=== PATIENT | male | born 1945 | race Caucasian/White ===

== ENCOUNTER 2019-05-20 12:59 | Inpatient (IN) | payer MEDICARE ==
[~2019-05-20] VITALS: Ht 177.8 cm; Wt 81.6 kg
--- NOTE | ~2019-05-20 | PR ---
[place], [place] [facility]GRESS NOTE [id number] #: [id number] ROOM: 315 DOCTOR: AMY MEDINA MD BIRTHDATE: [birth year] DOS: 05/26/2019 CHIEF COMPLAINT: The patient was perseverative and repeated everything I said. SUMMARY OF THE VISIT: The patient was interviewed. As I entered the room, he was sitting in a Stephy chair. He exhibited both echolalia and perseveration. He repeated what I said and also had a tendency to repeat himself over and over again. He was not agitated, just grossly confused. Nurses report similar behavior throughout the day that his confusion is progressively worsening. MENTAL STATUS: He is alert and oriented to self, unclear place, certainly not time. Mood for the most part is euthymic. Responses are short, simple and inappropriate for the most part. PLAN: I will recheck a comprehensive metabolic panel as well as an amylase and lipase, check a valproic acid level in the a.m. and increase Exelon patch from 4.6 to 9.5 mg a day. Continue to engage in individual and lloyd milieu activity, returning to the least restrictive environment when psychiatrically stable. AMY MEDINA MD CM:PNTRANS [id number] AMY MEDINA MD 05/27/19 0244 interface
--- NOTE | ~2019-05-20 | PR ---
[place], [place] PROGRESS NOTE [id number] UNIT #: [id number] ROOM: 315 DOCTOR: AMY MEDINA MD BIRTHDATE: [birth year] DOS: 05/22/2019 CHIEF COMPLAINT: "Good morning." SUMMARY OF THE VISIT: The patient was interviewed as he was sitting in the dining area. He engaged in brief superficial conversation. Most of his responses were short and simple. He was, however, not agitated or aggressive towards me. He does seem to be outwardly tolerating the medication regimen well. His guardian did agree to allow him to be on the Exelon. She did report that when he was on the combination of Exelon and Namenda, he had a period of time where he became nonresponsive. My sense is that this was secondary to the Namenda and not to the Exelon. We will, however, start the Exelon and titrate very slowly and cautiously and monitor him closely. MENTAL STATUS: He is alert and oriented to self only. Mood for the most part was euthymic. Affect appropriate. There is no markel, hypomania or psychosis. He does process conversation exceedingly slow and short term memory is very poor. PLAN: His valproic acid level was therapeutic at 70.2. We will maintain his current psychotropic regimen, engage in individual and lloyd milieu activity, returning then to the least restrictive environment when psychiatrically stable. AMY MEDINA MD CM:PNTRANS 1313 AMY MEDINA MD 05/22/19 1311 interface
--- NOTE | ~2019-05-20 | PR ---
[place], [place] PROGRESS NOTE [facility] [id number] UNIT #: [id number] ROOM: 315 DOCTOR: AMY MEDINA MD BIRTHDATE: [birth year] DOS: 05/30/2019 CHIEF COMPLAINT: "I guess the food is good." SUMMARY OF THE VISIT: The patient was interviewed as he was eating his breakfast with the help of an aide. I asked if he liked his breakfast and he looked at me perplexed and said "I guess so." I asked him if he was thirsty and he nodded in approval and requested something to drink and he had a sip of milk. For the most part, his speech was goal oriented. Short and simple responses for the most part, but nothing bizarre like he had been previously. MENTAL STATUS: He is alert and oriented to self only. He remains grossly confused and disorganized. PLAN: His CT scan of the head yesterday came back showing small vessel disease changes. His CMP results seem to be showing some issues, but nothing truly significant, but I will plan on rechecking a CMP and a sed rate in the a.m. At this point in time, I will avoid the use of Namenda and Exelon and also try to avoid the use of any psychotropics until we see how this mental status of his clears. We will attempt to engage in individual and lloyd milieu activity. We will attempt aggressive PT and OT. We will return to the least restrictive environment when psychiatrically stable. AMY MEDINA MD CM:PNTRANS 3 [phone] AMY MEDINA MD 05/30/191924 interface
--- NOTE | ~2019-05-20 | PR ---
[place], [place] PROGRESS NOTE NAME: [id number] UNIT #: [id number] ROOM: 315 DOCTOR: BINDU FOSTER CNP BIRTHDATE: [birth year] DOS: 06/01/2019 CHIEF COMPLAINT: "This will be about the last one." SUMMARY OF THE VISIT: The patient was interviewed as he lie in his bed. The patient has eyes closed whenever I entered his room; however, he aroused easily whenever I called his name. The patient appears definitely more alert today. Staff reports that the patient has been praying for everyone and singing. The patient did sleep 4 hours last night. The patient definitely has shown some improvement since yesterday. MENTAL STATUS EXAMINATION: The patient is alert to self. He was pleasant and cooperative with me. No markel or hypomania noted. No delusions or paranoia noted. No psychotic symptoms noted. No auditory or visual hallucinations noted. The patient's mood was calm. Affect congruent with mood. No agitation, irritability or aggression noted. Speech is somewhat nonsensical. PLAN: The patient is not on any psychotropics, so we will continue the patient's other medications as prescribed. His H and H was 7 and 21 this morning. A hospitalist will follow him for this. We will continue to try to encourage the patient to engage in individual and lolyd milieu activity. Continue fall and safety precautions. Plan is to return the patient to the least restrictive environment once he is considered psychiatrically stable. Bindu Foster CNP CM:PNTRANS [phone] BINDU FOSTER CNP 06/02/19 0314 interface
--- NOTE | ~2019-05-20 | PR ---
[place], [place] PROGRESS NOTE [id number] UNIT #: [id number] ROOM: 315 DOCTOR: BINDU FOSTER CNP BIRTHDATE: [birth year] DOS: 05/31/2019 CHIEF COMPLAINT: The patient was overly somnolent. SUMMARY OF THE VISIT: The patient was attempted to be interviewed as he sat in a reclining chair in the dining room. The patient did open his eyes whenever I called his name; however, he does not verbalize with me this morning. Staff reports that the patient does continue to have some anxiety and to yell out at times; however, he also has periods of being lethargic and somnolent. The patient is currently not on any psychotropic medications. MENTAL STATUS EXAMINATION: The patient is alert and oriented to himself. There is no markel or hypomania noted. No delusion or paranoia noted. No psychotic symptoms noted. No auditory or visual hallucinations noted. The patient's mood was calm this morning. Affect congruent with mood. No agitation, irritability or aggressiveness noted. PLAN: The patient had an ESR, which was elevated to 70. His BUN and creatinine are elevated. His GFR is low. We will have the plan to have the hospitalist follow up with these labs. We will not change any medications today. I will continue to monitor the patient and continue to encourage the patient to engage in individual and lloyd milieu activity. Continue fall and safety precautions. Plan is to return the patient to the least restrictive environment once he is considered psychiatrically stable. Bindu Foster CNP CM:PNTRANS [id number] BINDU FOSETR CNP 05/31/19 1224 interface
--- NOTE | ~2019-05-20 | DS ---
[place], [place] DISCHARGE SUMMARY [facility] [id number] UNIT #: [id number] ROOM: 315 DOCTOR: AMY MEDINA MD BIRTHDATE: [birth year] DOS: 06/03/2019 CHIEF COMPLAINT: "I didn't do it, he would be good." HISTORY OF PRESENT ILLNESS: This is a 74-year-old white male who is a resident of [facility] in [place], [place]. The patient presents with increased agitation and aggression. The patient has been attempting to elope the facility and when redirected, has become increasingly more combative with staff. Because he has not been able to be redirected and he is putting both himself and others at substantial risk of harm, he was admitted to the U to rule out organic factors to stabilize on medication and to engage in individual and lloyd milieu activity. SUMMARY OF HOSPITAL COURSE: The patient was admitted to the unit where his Depakote level was increased and he was started on Exelon patch. The patient's guardian did state that the patient had a reaction to either Exelon or Namenda as he was on both of these at one time. We agreed to at least try the Exelon and go slowly with it. Additionally, routine screening examinations revealed him to have a low vitamin D level of 21.7 on admission and he was started on vitamin D 5000 International Units daily. Depakote dose was increased during his stay, but to no avail. It just only seemed to cause him sedation, but did not impact positively on his behavior. He became somewhat somnolent with the Depakote, so it was later discontinued and he was maintained on the Exelon alone. The patient continued to be somnolent even on just the Exelon and the guardian requested that he be kept psychotropic free. All psychotropic meds were discontinued at that time and he was then monitored over the next 72 hours. Over this period of time, he became much more alert, but very, very confused, which was his baseline. There was no acting out or agitation and for the most part he responded to redirection well. Given the fact that he was stable without medications, it was felt that he can return back to the Dementia Unit at [facility] to have further treatment there. I will be the treating psychiatrist of record when he is readmitted to [facility]. MENTAL STATUS AT DISCHARGE: He is alert and oriented to self only. He is very confused and disoriented. Thoughts are disjointed, fragmented, and he responds nonsensically the most things. There was no agitation or aggression. No hypomania, markel. No psychosis. Short term, intermediate memory are both poor. FINAL DIAGNOSES: Intermittent explosive disorder, Lewy body dementia. DISPOSITION: The patient is returning back to [facility]. I will be the treating psychiatrist of record. At the time of discharge, he was both medically and psychiatrically stable. [place], [place] DISCHARGE SUMMARY NAME: SUDHA ALLEN UNIT #: [id number] ROOM: [facility] DOCTOR: AMY MEDINA MD BIRTHDATE: [birth year] AMY MEDINA MD CM:DISCHJIMMY [id number] AMY MEDINA MD 06/03/19 1601 interface
--- NOTE | ~2019-05-20 | PR ---
[place], [place] PROGRESS NOTE [id number] #: [id number] ROOM: 315 DOCTOR: AMY MEDINA MD BIRTHDATE: [birth year] DOS: 05/29/2019 CHIEF COMPLAINT: The patient talked nonsense. SUMMARY OF THE VISIT: The patient was attempted to be interviewed as he was sitting in the dining area. As I approached, he was awake. He made eye contact, but his responses were nonsensical and gibberish. Nurses report, he continues to have periods where he will talk on an imaginary phone and does report having tactile and visual hallucinations. MENTAL STATUS: He is alert and oriented to self only. He is confused and disoriented and disjointed and fragmented, grossly psychotic. PLAN: Given the plethora of tactile and visual hallucinations, I will go ahead and order a CAT scan with and without contrast to rule out the possibility of some type of intracranial pathology. We will monitor and support, engage in individual and lloyd milieu activity, returning to the least restrictive environment when psychiatrically stable. AMY MEDINA MD CM:PNTRANS [id number] AMY MEDINA MD 05/29/19 1521 interface
--- NOTE | ~2019-05-20 | PN ---
[place], [place] PROGRESS NOTE NAME: SUDHA ALLEN UNIT #: [id number] ROOM: 315 DOCTOR: AMY MEDINA MD BIRTHDATE: [birth year] DATE: 06/02/19 DR. MEDINA ADDENDUM 06/30/19 1200: Resident note reviewed. Agree with observations, recommendations, and overall treatment plan. AMY MEDINA MD CM:PNTRANS [phone] AMY MEDINA MD 06/30/19 1223 AMANDA ACHARYA MIS.LLR
--- NOTE | ~2019-05-20 | WRIGHTHP ---
[place], [place] PATIENT HISTORY AND PHYSICAL EXAM NAME: SUDHA ALLEN UNIT #: [id number] ROOM: 315 DOCTOR: AMY MEDINA MD BIRTHDATE: [birth year] DOS: 05/21/2019 INITIAL PSYCHIATRIC EVALUATION CHIEF COMPLAINT: "I didn't do it, he would be good." HISTORY OF PRESENT ILLNESS: This is a 74-year-old white male who is a resident of [facility] in [place], [place]. The patient presents now with increased agitation and aggression. The patient had been attempting to elope the facility and when redirected, had become increasingly more combative with staff. Because he has been unable to be redirected and has been putting himself and others at substantial risk for harm, he was admitted here for stabilization and crisis intervention. PAST MEDICAL HISTORY: Remarkable for Alzheimer's dementia, benign prostatic hyperplasia, coronary artery disease, congenital renal cyst, diabetes, diabetic retinopathy, hyperlipidemia, hypertension. SOCIAL HISTORY: He does not drink alcohol, use illicit drugs and he is a nonsmoker. ALLERGIES: He lists allergies to MORPHINE. STRENGTHS: Ambulatory. Good verbal skills. WEAKNESSES: Significant confusion, poor coping skills. MENTAL STATUS: The patient is alert and oriented to self only. Most of his responses to me this morning were nonsensical. At times, he would briefly make sense, but then would trail off into gibberish. He was pleasant and cooperative however and did not exhibit any agitation or aggression towards me. Memory does seem to be excessively poor. DIAGNOSES: Intermittent explosive disorder and Alzheimer's dementia. PLAN: I have increased his Depakote dose to try to stabilize his mood. I would like to start him on Exelon patch, but the guardian is not on board with this. We will attempt to educate the guardian regarding the benefits of the Exelon. Meanwhile, his vitamin D level upon admission was low at 21.7. I will add vitamin D 5000 International Units daily to treat this deficiency. We will engage in individual and lloyd milieu activity, returning to the least restrictive environment when psychiatrically stable. [place], [place] PATIENT HISTORY AND PHYSICAL EXAM NAME: SUDHA ALLEN UNIT #: [id number] ROOM: 315 DOCTOR: AMY MEDINA MD BIRTHDATE: [birth year] AMY MEDINA MD CM:HISPHYS:PATIENT HISTORY AND PHYSICAL EXAMINATION AMY MEDINA MD 05/21/19 0949 interface
--- NOTE | ~2019-05-20 | PN ---
[place], [place] PROGRESS NOTE NAME: SUDHA ALLEN UNIT #: [id number] ROOM: 315 DOCTOR: AMY MEDINA MD BIRTHDATE: [birth year] DATE: 05/28/19 DR. MEDINA ADDENDUM 06/30/19 1200: Resident note reviewed. Agree with observations, recommendations, and overall treatment plan. AMY MEDINA MD CM:PNTRANS [phone] AMY MEDINA MD 06/30/19 1224 AMANDA ACHARYA MIS.LLR
--- NOTE | ~2019-05-20 | PR ---
[place], [place] PROGRESS NOTE NAME: SUDHA ALLEN UNIT #: [id number] ROOM: 315 DOCTOR: AMY MEDINA MD BIRTHDATE: [birth year] DOS: 05/23/2019 INTERVAL NOTE CHIEF COMPLAINT: "Oh, yeah, I had all that." SUMMARY OF THE VISIT: The patient was interviewed as he was sitting drinking orange juice in the dining area. He had already eaten his breakfast tray. He was exchanging words pleasantly with one of the female aids. As I approached, he engaged in superficial conversation, some of it was nonsensical. His responses tended to be short and simple. There was no agitation or aggression, however, nurses noted that last evening, he became increasingly agitated and threatening and did take a p.r.n. oral Ativan with good results. MENTAL STATUS: He is alert and oriented to self, unclear place, certainly not time. Mood this morning was fairly euthymic. Affect appropriate. No hypomania, markel or psychosis is noted. Short term memory is very problematic. PLAN: Given the positive response with the p.o. Ativan, I will go ahead and order Ativan 0.5 mg t.i.d. straight to see if we can get ahead of any of the agitation and aggression. I will titrate the Exelon patch very slowly based on his past history and plan on not using Namenda to augment it given his history of being sensitive to this medication. Meanwhile, we will engage in individual and lloyd milieu activity, returning to the least restrictive environment when psychiatrically stable. AMY MEDINA MD CM:PNTRANS [phone] AMY MEDINA MD 05/23/19 2334 interface
--- NOTE | ~2019-05-20 | PR ---
[place], [place] PROGRESS NOTE [id number] #: [id number] ROOM: 315 DOCTOR: AMY MEDINA MD BIRTHDATE: [birth year] DOS: 05/27/2019 INTERVAL NOTE CHIEF COMPLAINT: "Where is the fire at?" SUMMARY OF THE VISIT: The patient was reviewed where he was sitting in the dining area. He was very confused and disjointed. His responses make no sense to the questions asked. He still does seem to be mildly somnolent, despite me discontinuing all of his psychotropic regimen other than the Exelon patch. His valproic acid level was rather low normal at 56.7, so his blood level should be now waning significantly. MENTAL STATUS: He is alert and oriented to person, certainly not place or time. Mood does seem to be fairly euthymic. His responses though were confused and disjointed and fragmented. There is no markel, hypomania or psychosis. Short-term memory is very problematic. PLAN: I will maintain him just on the Exelon, monitor for clearing of the somnolence, engage in individual and lloyd milieu activity, returning to the least restrictive environment when psychiatrically stable. AMY MEDINA MD CM:PNTRANS [phone] AMY MEDINA MD 05/27/19 1416 interface
[2019-05-20] MEDS ORDERED: DEPAKOTE SPRIN125 MG PO ×2 (13:43→13:44)
[2019-05-20] MEDS ORDERED: ASPIRIN CHILDRE81 MG PO (13:45)
[2019-05-20] MEDS ORDERED: LIPITOR40 MG PO (13:49)
[2019-05-20] MEDS ORDERED: FLOMAX0.4 MG PO (13:51)
[2019-05-20] MEDS ORDERED: PLAVIX75 M1 PO (13:51)
[2019-05-20] MEDS ORDERED: IMDUR SA30 MG PO (13:54)
[2019-05-20] MEDS ORDERED: HYDR25T PO (13:54)
[2019-05-20] MEDS ORDERED: ZESTRIL20 MG PO (13:56)
[2019-05-20] MEDS ORDERED: MACROBID100 M1 PO (13:57)
[2019-05-20] MEDS ORDERED: REMERON15 M2 PO (13:58)
[2019-05-20] MEDS ORDERED: METOPROLOL SUCC50 M1 PO (13:58)
[2019-05-20] MEDS ORDERED: TRESIBA FL200 UNIT/1 SQ (14:00)
[2019-05-20] MEDS ORDERED: BRIMONIDINE TAR10 ML OPH (14:01)
[2019-05-20] MEDS ORDERED: NYSTATIN CREAM15 GM T (14:04)
[2019-05-20] MEDS ORDERED: VISTARIL50 MG PO (14:05)
--- NOTE | 2019-05-20 16:51 | NUR ---
DR. ROOT NOTIFIED OF NEW ADMISSION, MEDICATION AND DIAGNOSIS LIST UPDATED FOR REVIEW. PATIENT WILL BE UNDER THE CARE OF DR. BRAXTON.
[2019-05-20 16:57] VITALS: BP 117/63
--- NOTE | 2019-05-20 17:55 | NUR ---
DR. RYDER ON UNIT TO ASSESS PATIENT.
[2019-05-20 18:26] VITALS: BP 117/63
--- NOTE | 2019-05-20 19:28 | NUR ---
P: IRRITABLE WITH HANDS ON CARE, ATTEMPTED TO SWING AT MENTAL HEALTH WORKER WITH ASSISTING TO BED. INCREASED CONFUSION WITH NON SENSICAL SPEECH. WONDER IN HALLWAY. POOR PO INTAKE FOR DINNER. I: ONE ON ONE AND REDIRECTION; 2 PERSON ASSIST WITH ALL HANDS ON CARE. R: REDIRECTION WITH MININAL EFFECT. PATIENT IS ALERT TO SELF WITH CONFUSION; LONG/SHORT TERM MEMORY DEFICITS. VISUAL HALLUCINATIONS OBSERVED, RESPONDING TO INTERNAL STIMULI. NO VOICED STATEMENT OF HI/SI OR PAIN. PATIENT VOIDED AT 1800. PATIENT TO BE STRAIGHT CATHED Q 12 HRS FOR URINARY RETENTION. 2 PERSON ASSIST WITH ACTIVITIES OF DAILY LIVING. AMBULATORY, UNSTEADY GAIT AT TIMES. P: CONTINUE TO MONITOR FOR AGGRESSION; PROVIDE ONE ON ONE, REDIRECTION; 2 PERSON ASSIST WITH HANDS ON CARE.
[2019-05-20 19:29] VITALS: BP 128/78
[2019-05-20 20:00] VITALS: BP 128/78
--- NOTE | 2019-05-20 20:30 | NUR ---
INTERACTING WITH MALE PEER. BOTH HAVE NONSENSICLE SPEECH. UNABLE TO MAKE ANY SENSE TO EITHER CONVERSATION. MEDICATION COMPLIANT. UNABLE TO HAVE 1:1 DUE TO POOR COGNITION
--- NOTE | 2019-05-20 23:37 | NUR ---
ATTEMPTED TO INSERT HERNANDEZ PER ORDERS. CLIENT EXTREMELY COMBATIVE. UNABLE TO PASS THE PROSTATE. WILL NOTIFY DOCTORS IN MORNING
--- NOTE | 2019-05-21 04:49 | NUR ---
SLEPT FAIR TONIGHT. MOVES SELF AROUND IN BED 24 HR chart check completed.
--- NOTE | 2019-05-21 06:36 | NUR ---
VOIDING WITHOUT INTERVENTION. UA SENT TO LAB
[2019-05-21 06:44] LABS: BASO % 0.3 % (0.0-1.0); EOS # 0.2 10*3/uL (0.0-0.4); EOS % 4.2 % (1.0-4.0); HEMATOCRIT 24.8 % (42.0-52.0); HEMOGLOBIN 8.4 g/dl (14.0-18.0); LYMPH # 1.1 10*3/uL (1.3-4.4); LYMPH % 19.4 % (27.0-41.0); MEAN CELL VOLUME 91.2 fl (80.0-94.0); MEAN CORPUSCULAR HGB 30.9 pg (27.0-31.0); MEAN CORPUSCULAR HGB CONC 33.9 g/dl (33.0-37.0); MEAN PLATELET VOLUME 9.6 fl (9.6-12.3); MONO # 0.5 10*3/uL (0.1-1.0); MONO % 7.8 % (3.0-9.0); NEUT # 3.9 10*3/uL (2.3-7.9); NEUT % 67.1 % (47.0-73.0); PLATELET COUNT AUTOMATED 300 10*3/uL (130-400); RED BLOOD COUNT 2.72 10*6/uL (4.50-5.90); RED CELL DISTRI WIDTH 12.8 % (0-14.5); WHITE BLOOD COUNT 5.8 10*3/uL (4.8-10.8)
[2019-05-21 06:46] LABS: BILIRUBIN NEGATIVE (NEGATIVE); BLOOD 3+ (NEGATIVE); CLARITY SL CLOUDY (CLEAR); COLOR YELLOW (YELLOW); GLUCOSE NEGATIVE (NEGATIVE); KETONE NEGATIVE (NEGATIVE); LEUKO ESTERASE 2+ (NEGATIVE); NITRITE NEGATIVE (NEGATIVE); UROBILINOGEN 0.2 E.U./dl (0.2-1.0)
[2019-05-21 07:21] LABS: ALKALINE PHOSPHATASE 79 U/L (45-117); BUN 39 mg/dl (7-24); CHLORIDE 106 mmol/L (98-107); POTASSIUM 4.3 mmol/L (3.5-5.1); SODIUM 139 mmol/L (136-145)
[2019-05-21 07:37] LABS: ALBUMIN 2.9 gm/dl (3.1-4.5); CHOLESTEROL 83 mg/dL (<200); CREATININE 1.25 mg/dL (0.70-1.30); HDL CHOLESTEROL 28 mg/dl (40-60); LDL CHOLESTEROL 41 mg/dL (9-159); SGOT/AST 20 IU/L (3-35); SGPT/ALT 32 U/L (12-78); TOTAL PROTEIN 6.2 gm/dL (6.4-8.2); TRIGLYCERIDES 68 mg/dl (<150); VALPROIC ACID (DEPAKENE) 70.2 ug/ml (50-100); VLDL CHOLESTEROL 14 mg/dL (6-40)
--- NOTE | 2019-05-21 08:00 | NUR ---
Treatment Plan meeting with Dr. Soliman, RN, AT, SW and Software Engineer Backend. Plan for discharge Next week. Pt. came to [facility] From [facility]. Will reach out to facility today to discuss discharge planning.
[2019-05-21 08:05] LABS: VITAMIN D, 25-HYDROXY 21.7 ng/mL (30-100)
[2019-05-21 08:14] VITALS: BP 116/69
[2019-05-21 09:27] LABS: BACTERIA 2+; RBC 41-50 rbc/hpf (0-2); WBC 31-40 wbc/hpf (0-5)
--- NOTE | 2019-05-21 10:35 | NUR ---
Spoke with Shivani at [facility]. Pt. is Accounting Recruiter Care at facility and resides in the Dementia Unit. Pt. will return at discharge. Patient has a Power of Stock Parts Fabricator in Affect which is his Significant other Hope.
--- NOTE | 2019-05-21 11:59 | NUR ---
AM GROUP PT DID NOT ATTEND MORNING GROUP THERAPY. PT WAS WALKING THE HALLS. PT IS UNABLE TO PARTICIPATE AT THIS TIME DUE TO COGNITIVE IMPAIRMENT
--- NOTE | 2019-05-21 13:03 | NUR ---
Spoke to Agustín at [facility] regarding prior authorization for inpatient mental health admission. Information given regarding admission. Ref # [id number]. Per Agustín someone from [facility] will return CM call for clinical within 24 hours. Awaiting return call.
--- NOTE | 2019-05-21 13:39 | NUR ---
Spoke to Ijeoma Dale at [facility]. Clinical information given. Patient is being sent to the medical record specialist due to diagnosis of dementia. Awaiting return call.
--- NOTE | 2019-05-21 13:48 | NUR ---
Met with pt this AM. Pt was intently speaking of [place] in a truck. 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 Pt was pleasant but a poor historian. Left a voicemail message for pt's DPOAHC george Pryor requesting a return call.
--- NOTE | 2019-05-21 13:53 | NUR ---
PHYSICAL THERAPY Nursing screen received and chart reviewed. Physical therapy referral received. Thank you. Edith Wilks,PT,DPT
--- NOTE | 2019-05-21 14:05 | NUR ---
Spoke to Ijeoma Dale from [facility]. IP 10 days maximiliano. LCD and NRD 05/29. Ref # [id number]
--- NOTE | 2019-05-21 14:45 | NUR ---
Spoke with pt's significant other/DPOAHC Suzi Pryor who provided pt hx. Patient resided at home with Suzi until 03-31-19 when pt was moved to due to his behaviors. Suzi stated that pt enjoys gospel and country music. He also enjoys [employer] music or DVDs. 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 Suzi stated that the [facility] caregivers are also reporting pt stating this. 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 Pt never spoke of this when he was at home. Suzi is wondering if this is a reference to pt leaving the [facility] as the driveway is up a hill to exit.
--- NOTE | 2019-05-21 15:40 | NUR ---
PM GROUP/LEISURE INTERESTS PT DID NOT ATTEND AFTERNOON GROUP THERAPY. PT WAS WALKING THE HALLS. PT IS UNABLE AT THIS TIME TO PARTICIPATE DUE TO COGNITIVE IMPAIRMENT
--- NOTE | 2019-05-21 16:12 | NUR ---
Shift chart check completed.
--- NOTE | 2019-05-21 16:23 | NUR ---
PATIENT HAS A SKIN TEAR ON TOP OF RIGHT HAND WHEH THERE IS SENILE PURPURA. MEASUREMENT 1.5X0.2X0.1CM. CLEANSE WITH NORMAL SALINE AND DRY DRESSING APPLIED. DR RYDER NOTIFIED FOR TREATMENT. SPOUSE AWARE.
--- NOTE | 2019-05-21 17:55 | NUR ---
P: AUDITORY/VISUAL HALLUCINATIONS, TALKING TO UNSEEN OTHERS IN FULL CONVERSATION, REACHING ON THE FLOOR. NON SENSICAL SPEECH WITH FLIGHT OF IDEAS. I: ONE ON ONE AND REDIRECTION/ORIENTATION; OFFERED ACTIVITIES R: EFFECTIVE WITH SOME. STILL TALKING TO UNSEEN OTHERS. PATIENT IS ALERT TO PERSON WITH CONFUSION; LONG/SHORT TERM MEMORY DEFICITS. NO RESPONSE TO INTERNAL STIMULI. NO VOICED STATEMENT OF HI/SI OR PAIN. 1-2 PERSON ASSIST WITH ACTIVITIES OF KHARI LIVING. CONTINENT WITH ONE EPISODE OF BLADDER INCONTINENT. VOIDED X2; 0800 AND 1350. AMBULATORY WITH STEADY GAIT. SET UP FOR MEALS, INTAKES ARE POOR WITH MUCH ENCOURAGEMENT. P: CONTINUE TO MONITOR FOR HALLUCINATIONS, DELUSION AND AGGRESSION WITH HANDS ON CARE. PROVIDE ONE ON ONE AND REDIRECTION/ORIENTATION NEEDED.
--- NOTE | 2019-05-21 18:19 | NUR ---
P: AMBULATED PATIENT WITH ASSIST BECAME PARANOID WITH DARTING EYES STATING "I SEE WAR OF " PATIENT WAS SITTING IN GERICHAIR IN DINING ROOM, ATTEMPTING TO STAND UP, ALARM SOUNDING. PATIENT STATED "I'M IN BED, I SEE MATTRESSES FLYING IN THE AIR" I: ONE ON ONE, REDIRECTION/ORIENTATION. R: REDIRECTION EFFECTIVE; PATIENT IS ALERT TO PERSON AND SITUATION WITH CONFUSION. LONG/SHORT TERM MEMORY NOTED. HALLUCINATIONS/DELUSION; RESPONING TO INTERNAL STIMULI. NO VOICED STATEMENT TO HI/SI OR PAIN. 2 PERSON ASSIST WITH ACTIVITIES OF DAILY LIVING; INCONTINENT OF BOWEL AND BLADDER. SET UP FOR MEALS, ONE ASSIST WITH EATING. MEAL INTAKES ARE FAIR. P: CONTINUE TO MONITOR FOR AGGRESSION WITH HANDS ON CARE, HALLUCINATIONS AND DLUSIONS. PROVIDE ONE ON ONE AND REDIRECTION NEEDED.
[2019-05-21 19:34] VITALS: BP 119/66
--- NOTE | 2019-05-21 19:56 | NUR ---
P--DISORIENTATION, I--REORIENTED TO PLACE AND TIME. ALTERNATIVE THINGS TO DO, WATCH TV, READ A BOOK, EMOTIONAL SUPPORT PROVIDED R---REARRANGED ALL THE FURNITURE IN QUIET ROOM. UNABLE TO REORIENT TO PLACE AND TIME. WANDERING IN HALLWAY..NONSENSICLE SPEECH P--MONITOR FOR SAFETY. MONITOR FOR CHANGES IN MOOD AND OR BEHAVIOR.
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
--- NOTE | 2019-05-22 02:15 | NUR ---
UP TO BATHROOM. VOIDED CLEAR YELLOW URINE SUFFICIENT QUANTITY 24 HR chart check completed.
--- NOTE | 2019-05-22 05:58 | NUR ---
SIX HOURS BROKEN SLEEP
--- NOTE | 2019-05-22 07:01 | NUR ---
SUDHA ALLEN [id number] Please refer to the physician's history and physical for past medical history, comorbid conditions, and allergies. Diagnosis: INTERMITTENT EXPLOSIVE DISORDER Den Score: 17,AT RISK WOUND DESCRIPTIONS: Wound Number: 1 Location of the wound: right hand Type of wound: skin tear Thickness: Partial Size: 1.5cm x 0.1cm x <0.1cm Tunneling: none Undermining: none Sinus Tract: none Presence of Exudate: Amount: None Color: Red Odor: None Periwound Skin Appearance: Normal Wound edges: approximated Pain (associated with wound): none at time of assessment How does patient state this happened? pt unable to state how this happened Wound Number: 2 Location of the wound: Left walter Type of wound: scab Size: 2.5cm x 1.4cm x<0.1cm Tunneling: none Undermining: none Sinus Tract: none Presence of Exudate: none Amount: None Color: Red Odor: None Periwound Skin Appearance: Normal Wound edges: approximated Pain (associated with wound): none at time of assessment How does patient state this happened? pt unable to state at this time Ecchymotic area noted to left hand at time of assessment. No open areas noted at time of assessment. This nurse went to evaluate patient posterior upper back and groin and stated raised his voice and stated to get out of here now. This nurse informen nurse caring for patient. Surface the patient is resting on: Proform SKIN PREVENTION RECOMMENDATION: 1. Pressure redistribution support surface as appropriate 2. Elevate heels 3. Remove boots/TEDS every shift and reapply 4. Head of bed 30 degrees as tolerated 5. Assess nutrition and hydration 6. Manage moisture 7. Avoid the use of containment devices while in bed 8. Use absorptive products on surfaces limit layers of linens on bed 9. Turn and reposition every 1-2 hours in bed and every 1 hour in chair as tolerated 10. Weight shifts every 15 minutes while up in chair 11. Offloading with pillows or device to keep heels elevated off bed 12. Monitor skin at least every shift 13. Inspect under medical devices twice a day WOUND TREATMENT RECOMMENDATIONS: Clarify skin tear guidelines: Cleanse right hand with nss and apply sureprep around the wound hydrogel to wound bed and cover with optifoam gentle daily and prn for soiling.
[2019-05-22 07:46] VITALS: BP 133/65
--- NOTE | 2019-05-22 08:00 | NUR ---
Treatment Plan meeting with Dr. Soliman, RN, AT, SW and Papeterie Table Assembler. Plan for discharge next week. Pt. will return to [facility].
--- NOTE | 2019-05-22 10:15 | NUR ---
Dr. Day notified of wound care recommendations.
--- NOTE | 2019-05-22 11:21 | NUR ---
DR. RYDER ON UNIT TO ASSESS PATIENT.
--- NOTE | 2019-05-22 12:24 | NUR ---
AM GROUP/LIGHT THERAPY PT DID NOT ATTEND MORNING GROUP THERAPY. PT WAS IN BED RESTING
--- NOTE | 2019-05-22 14:42 | NUR ---
PHYSICAL THERAPY Nursing screen received and chart reviewed. Physical therapy referral received. Thank you. Edith Wilks,PT,DPT
--- NOTE | 2019-05-22 15:31 | NUR ---
PM GROUP PT DID NOT ATTEND AFTERNOON GROUP THERAPY. PT WAS IN BED SLEEPING
--- NOTE | 2019-05-22 16:21 | NUR ---
Nursing screen and occupational therapy referral received. Thank you. Kaci Kennedy OTR/L
--- NOTE | 2019-05-22 18:19 | NUR ---
P: VOICED DELUSIONAL THOUGHTS: "I [id number] ON MY BACK ALL DAY" PATIENT HAVING AUDITORY HALLUCIATIONS. PUTTING SELF ON FLOOR-OBSERVED AND DISROBING OF SHIRT. I: ONE ON ONE AND REDIRECTIONS/ORIENTATIONS PROVIDED. R: EFFECTIVE; PATIENT IS ALERT TO PERSON, SITUATION, AWARE OF BEING IN THE HOSPITAL. DATE IS JULY 2019. 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 MOOD IS IRRITABLE, HOPELESS AND HELPLESS. 2 PERSON ASSIST WITH ACTIVITIES OF DAILY LIVING, INCONTINENT OF BOWEL AND BLADDER. SET UP FOR MEALS WITH ONE ASSIST. PARTICIPATED IN MORNING GROUP SESSION. INTERACTIVE WITH STAFF DURING HANDS ON CARE. P: CONTINUE TO MONITOR FOR HALLUCINATIONS/DELUSIONS; MEAL INTAKE; PROVIDE ONE ON ONE AND REDIRECTION NEEDED.
[2019-05-22 20:06] VITALS: BP 137/69
--- NOTE | 2019-05-22 21:27 | NUR ---
PATIENT VERY AGGRESSIVE WITH STAFF PHYSICALLY, TALKING NON SENSICALLY. HITTING OUT AT STAFF AND YELLING. CLIMBED IN BED WITH ROOMMATE. NOT EASILY REDIRECTED. MEDICATED WITH PRN ATIVAN IM ORDERED. PLACED IN RECLINING CHAIR AND PUT NEAR NURSE'S STATION TO BE EASILY OBSERVED. CONTINUES TO YELL OUT.EHRNANDEZ CATH IN PLACE AND PATENT FOR CLEAR YELLOW URINE. LEG BAG BEING USED INSTEAD OF HERNANDEZ DRAIN BAG DUE TO PATIENT BEING AMBULATORY. SNACK AND FLUIDS OFFERED, BUT REFUSED. PATIENT CHEWED UP EVENING MEDS(CAPSULES) AND SPIT OUT CAPSULE. GIVEN MEDS IN APPLESAUCE AND HE SWALLOWED THEM. GIVEN WATER TO DRINK AND HE SPIT IT OUT ONTO THE FLOOR.
--- NOTE | 2019-05-22 21:54 | NUR ---
24 HR chart check completed.
--- NOTE | 2019-05-23 05:49 | NUR ---
Upon discharge recommend patient to follow up for wound care in outpatient setting continue current wound care orders at discharging facility.
--- NOTE | 2019-05-23 06:05 | NUR ---
PT SLEPT ABOUT 4 HOURS WITHOUT INTERRUPTIOIN DURING THEW NIGHT. WOKE UP AROUND [phone] THEN WENT BACK TO SLEEP.
[2019-05-23 06:52] LABS: BASO % 0.4 % (0.0-1.0); EOS # 0.2 10*3/uL (0.0-0.4); EOS % 2.3 % (1.0-4.0); HEMATOCRIT 24.9 % (42.0-52.0); HEMOGLOBIN 8.5 g/dl (14.0-18.0); LYMPH # 0.7 10*3/uL (1.3-4.4); LYMPH % 9.9 % (27.0-41.0); MEAN CELL VOLUME 91.2 fl (80.0-94.0); MEAN CORPUSCULAR HGB 31.1 pg (27.0-31.0); MEAN CORPUSCULAR HGB CONC 34.1 g/dl (33.0-37.0); MEAN PLATELET VOLUME 10.1 fl (9.6-12.3); MONO # 0.6 10*3/uL (0.1-1.0); NEUT # 5.9 10*3/uL (2.3-7.9); NEUT % 78.6 % (47.0-73.0); PLATELET COUNT AUTOMATED 306 10*3/uL (130-400); RED BLOOD COUNT 2.73 10*6/uL (4.50-5.90); RED CELL DISTRI WIDTH 12.8 % (0-14.5); WHITE BLOOD COUNT 7.5 10*3/uL (4.8-10.8)
[2019-05-23 06:54] LABS: BUN 45 mg/dl (7-24); CHLORIDE 107 mmol/L (98-107); POTASSIUM 4.6 mmol/L (3.5-5.1); SODIUM 140 mmol/L (136-145)
[2019-05-23 07:41] VITALS: BP 136/66
--- NOTE | 2019-05-23 08:00 | NUR ---
Treatment Plan meeting with Dr. Soliman, RN, AT, SW and Information Manager. Plan for discharge Late Next week. Pt. will return to [facility].
--- NOTE | 2019-05-23 08:35 | NUR ---
Spoke with Dr. Day regarding wound care recommendations he stated it was okay to edit the order.
--- NOTE | 2019-05-23 09:45 | NUR ---
SPOKE WITH DR. PAN AT [phone] RE: PT URINE CULTURE RESULTS. NO FURTHER ORDERS AT THIS TIME.
--- NOTE | 2019-05-23 11:27 | NUR ---
PT C/O BACK PAIN, UNABLE TO RATE ON SCALE. PT MEDICATED WITH TYLENOL 650 MG PO PRN PER PT REQUEST. 1300 MEDS GIVEN AT THIS TIME, OK PER DR MEDINA.
--- NOTE | 2019-05-23 11:37 | NUR ---
PHYSICAL THERAPY Physical therapy evaluation attempted. Patient is aggitated at the time. PT will attempted skilled PT evaluation at a later date. Thank you, Alma Jacobs, SPT Edith Wilks,PT DPT
--- NOTE | 2019-05-23 11:42 | NUR ---
AM GROUP PT WAS PRESENT FOR MORNING GROUP THERAPY AND WAS VERY AGITATED AT THE TRAY ON HIS ELFEGO CHAIR. PT WAS CALMED BY THIS STEEL CONSTRUCTION WORKER SITTING AND TALKING WITH PT. PT SPEAKS IN WORD SALAD. PT EXHIBITED NO AGGRESSION WHILE IN GROUP AND WAS HAPPY TO TALK TO THE NURSING STUDENTS.
--- NOTE | 2019-05-23 11:43 | NUR ---
Patient not able to participate in occupational therapy evaluation as he is agitated. OTR will attempt at a later date. Kaci Kennedy OTR/socorro
--- NOTE | 2019-05-23 13:11 | NUR ---
Clinical Updates faxed to [facility] Atttn: Patsy.
--- NOTE | 2019-05-23 15:36 | NUR ---
PM GROUP PT WAS PRESENT FOR AFTERNOON GROUP THERAPY AND TALKED FOR QUITE A WHILE WITH A SEARCH LEAD. PT SPEECH IS NONSENSICAL BUT EXHIBITED NO AGITATION OR AGGRESSION WHILE IN GROUP.
--- NOTE | 2019-05-23 16:06 | NUR ---
PT REFUSED DRESSING CHANGE TO RIGHT HAND AT THIS TIME.
[2019-05-23 19:38] VITALS: BP 128/67
--- NOTE | 2019-05-23 23:00 | NUR ---
P-DELUSIONAL, AUDITORY, VISUAL, TACTILE HALLUCINATIONS, CONFUSION I-PRESENT REALITY, REORIENT, ADMINISTER MEDS, MONITOR SLEEP R-LABILE MOOD. IRRITABLE WITH HANDS ON CARE OR ON CLOSE APPROACH. 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 RESPONDING TO AUDITORY, VISUAL & TACTILE HALLUCINATIONS. 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 UNRECEPTIVE TO PRESENTATION OF REALITY. ALERT TO PERSON ONLY. MEDICATIONS TAKEN AFTER 2-3 APPROACHES. REQUIRES MUCH PROMPTING. P-CONTINUE TO MONITOR BEHAVIORS & PROVIDE PHYSICAL ASSISTANCE & EMOTIONAL SUPPORT NEEDED.
--- NOTE | 2019-05-23 23:13 | NUR ---
24 HR chart check completed.
--- NOTE | 2019-05-24 00:40 | NUR ---
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 AUDITORY, VISUAL & TACTILE HALLUCINATIONS PRESENT. HE HAS BEEN TALKING TO UNSEEN OTHERS, TURNING HIS HEAD, LOOKING & RESPONDING VERBALLY & GESTURING WITH HANDS. 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 WHEN ASKED IF TRAY CAN BE REMOVED, HE STATED, "NO.NO. 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 I'M NOT GETTING OUT OF HERE. THEY HAVE A BUNCH OF GUNS DOWN THERE. NO. NO. NO. NOW GET SO I CAN DO MY JOB". CONTINUES TO REFUSE SKIN ASSESSMENT. MEDICATED WITH ATIVAN 1 MG PO @ 0035 FOR INCREASED ANXIETY & IRRITABILITY.
--- NOTE | 2019-05-24 06:10 | NUR ---
ATIVAN HAS BEEN MINIMALLY EFFECTIVE & HAS CALMED PT DOWN. HE HAS NODDED OFF NAPPING INTERMITTENTLY BUT HAS ONLY SLEPT APPROX 2 HOURS.
[2019-05-24 07:37] VITALS: BP 112/69
--- NOTE | 2019-05-24 09:21 | NUR ---
DR. BRAXTON ON UNIT TO ASSESS PT, UPDATE PROVIDED.
--- NOTE | 2019-05-24 12:43 | NUR ---
AM/DALTON/ART PT ATTENDED BUT SLEPT ENTIRE GROUP. PT WILL CONTINUE TO BE ENCOURAGED TO ATTEND AND PARTICIPATE IN GROUP TO BEST OF PT ABILITY.
--- NOTE | 2019-05-24 15:58 | NUR ---
PM/PAINTING/MUSIC PT IN ATTENDANCE UT RESTING. PT DID NOT WAKE FOR GROUP AT THIS TIME AND WILL CONTIUE TO ATTEND AND BE ENCOURAGED TO PARTICIPATE TO BEST OF PT ABILITY IN FUTURE GROUP SESSIONS
--- NOTE | 2019-05-24 16:25 | NUR ---
P: PT REFUSED AM PO MEDS. PT IRRITABLE AND RESTLESS AT TIMES. PT OBSERVED TO BE RESPONDING TO AUDITORY AND VISUAL HALLUCINATIONS. PT REFUSING TO BEAR WEIGHT FOR STAFF TO PROVIDE ADL CARE. I: ENCOURAGE MED COMPLIANCE, ENCOURAGE PT TO ASSIST STAFF IN ADL CARE, PROVIDE EMOTIONAL SUPPORT AND 1:l FOR PT TO VOICE FEELINGS, PRESENT REALITY AND RE-ORIENT R: PT CONTINUES TO REFUSE ALL AM PO MEDS, PT MED COMPLIANT WITH 1300 MEDS. PT UNRECEPTIVE TO RE-ORIENTATION AND PRESENTATION OF REALITY DUE TO COGNITION. PT ALERT TO PERSON ONLY, CONFUSION AND SHORT TERM MEMORY DEFICITS NOTED PER PT BASELINE. PT UP TO GERICHAIR, PT REFUSING TO BEAR WEIGHT TO AMBULATE OR FOR STAFF TO PROVIDE CARE. PT CONTINENT OF BOWEL, HERNANDEZ REMAINS IN PLACE, DRAINING CLEAR YELLOW URINE. P: PROVIDE EMOTIONAL SUPPORT AND 1:1 FOR PT TO VOICE FEELINGS, ENCOURAGE MED COMPLIANCE, ENCOURAGE PT TO ASSIST STAFF IN ADL CARE, CONTINUE TO RE-ORIENT AND PRESENT REALITY. MONITOR PT BEHAVIORS ON Q15 MIN SAFETY CHECKS.
[2019-05-24 19:26] VITALS: BP 131/61
--- NOTE | 2019-05-24 22:22 | NUR ---
24 HR chart check completed.
--- NOTE | 2019-05-24 22:41 | NUR ---
P-DELUSIONAL, AUDITORY, VISUAL, TACTILE HALLUCINATIONS, CONFUSION I-PRESENT REALITY, REORIENT, ADMINISTER MEDS, MONITOR SLEEP R-PT HAS BEEN CALMER & APPEARS TIRED THIS EVENING. IRRITABLE WITH HANDS ON CARE OR ON CLOSE APPROACH. 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 RESPONDING TO AUDITORY, VISUAL & TACTILE HALLUCINATIONS & GESTURED RECEIVING A PHONE CALL & TALKING TO SOMEONE ON THE OTHER END. UNRECEPTIVE TO PRESENTATION OF REALITY. ALERT TO PERSON ONLY. MEDICATIONS TAKEN AFTER 2-3 APPROACHES. REQUIRES MUCH PROMPTING.ASSISTED WITH FEEDINGS P-CONTINUE TO MONITOR BEHAVIORS & PROVIDE PHYSICAL ASSISTANCE & EMOTIONAL SUPPORT NEEDED.
--- NOTE | 2019-05-25 06:12 | NUR ---
PT HAS SLEPT PAST 2344 WITH 1 BRIEF AWAKENING HE WAS INCONTINENT OF A VERY LARGE BOWEL MOVEMENT.
[2019-05-25 08:37] VITALS: BP 128/68
--- NOTE | 2019-05-25 15:11 | NUR ---
PATIENT IS ALERT TO SELF WITH CONFUSION; LONG/SHORT TERM MEMORY DEFICITS NOTED. MOOD IS STABLE; RESTING IN CHAIR WITH EYES CLOSED. NO RESPONSE TO INTERNAL STIMULI, NO VOICED STATEMENT OF HI/SI OR PAIN. 2 PERSON ASSIST WITH ACTIVITIES OF DAILY LIVING, INCONTINENT OF BOWEL, HERNANDEZ CATHETER IN PLACE DRAINING WITHOUT DIFFICULTY. WITHDRAWN IN DINING ROOM WITH OTHER PATIENT. NO COMPLAINTS OF PAIN. MEDICATION COMPLIANT. Q 15 MINUTE SAFETY CHECKS. CONTINUE TO MONITOR FOR AGGRESSION, HALLUCINATIONS/DELUSIONS. PROVIDE ONE ON ONE AND REDIRECTION NEEDED.
[2019-05-25 20:00] VITALS: BP 130/64
--- NOTE | 2019-05-25 21:47 | NUR ---
24 HR chart check completed.
--- NOTE | 2019-05-25 23:50 | NUR ---
P-DELUSIONAL, AUDITORY, VISUAL, TACTILE HALLUCINATIONS, CONFUSION I-PRESENT REALITY, REORIENT, ADMINISTER MEDS, MONITOR SLEEP R-PT WAS SITTING IN THE DINING ROOM AT THE BEGINNING OF THE SHIFT. TALKING OUT LOUD & CARRYING ON A CONVERSATION WITH HIMSELF. CONTINUES TO HAVE AUDITORY, VISUAL & TACTILE HALLUCINATIONS & RESPOND TO THEM WITH A NOTED DECREASE. IRRITABLE WITH HANDS ON CARE OR ON CLOSE APPROACH. 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 UNRECEPTIVE TO PRESENTATION OF REALITY. ALERT TO PERSON ONLY. MEDICATIONS TAKEN AFTER 2-3 APPROACHES. REQUIRES MUCH PROMPTING.ASSISTED WITH FEEDINGS P-CONTINUE TO MONITOR BEHAVIORS & PROVIDE PHYSICAL ASSISTANCE & EMOTIONAL SUPPORT NEEDED.
--- NOTE | 2019-05-26 05:42 | NUR ---
PT HAS SLEPT INTERMITTENTLY THROUGHOUT THE SHIFT SLEEPING APPROX 3 HOURS
[2019-05-26 07:46] VITALS: BP 121/65
--- NOTE | 2019-05-26 08:30 | NUR ---
Treatment Plan meeting with Dr. Soliman, RN, AT, SW and Animal Pathologist. Plan for discharge at the end of the week, possible next week. Pt. will return to [facility].
--- NOTE | 2019-05-26 11:07 | NUR ---
PT REFUSED AM LANTUS AFTER X3 ATTEMPTS, STATED "NO SHOTS", UNABLE TO EDUCATE DUE TO COGNITION. NO SIGNS OR SYMPTOMS OF DISTRESS NOTED.
--- NOTE | 2019-05-26 11:15 | NUR ---
Occupational therapy orders received and chart reviewed. Patient admitted for intermittent explosive disorder. Patient was sleeping in chair upon arrival. Nursing requested to not wake patient and return this afternoon for OT/PT evaluation. Will follow up when appropriate. Thank you for the referral. Sahnta Mehta, OTR/L
--- NOTE | 2019-05-26 11:22 | NUR ---
PHYSICAL THERAPY Physical therapy evaluation attempted. Patient lethargic and resting at this time. Nursing request to hold PT evaluation and return at a later time/date to complete. Thank you. Edith Wilks,PT,DPT.
[2019-05-26 11:52] LABS: ALBUMIN 2.8 gm/dl (3.1-4.5); CREATININE 1.49 mg/dL (0.70-1.30); POTASSIUM 4.4 mmol/L (3.5-5.1); TOTAL PROTEIN 6.1 gm/dL (6.4-8.2)
--- NOTE | 2019-05-26 11:58 | NUR ---
AM GROUP PT IS UNABLE TO ATTEND OR PARTICIPATE IN GROUP THERAPY AT THIS TIME DUE TO COGNITIVE IMPAIRMENT.
--- NOTE | 2019-05-26 12:49 | NUR ---
SPEECH PATHOLOGY Clinical swallowing evaluation completed as per orders due to c/o trouble swallowing. Patient is diagnosed with intermittent explosive disorder, anxiety, Alzheimer's, UTI, HTN, DM. Patint receives a regular diet and thin liquid. Assessment was conducted during lunchtime meal. Patient was sitting upright in charleen chair, sleeping upon start of visit. He awakened and responded but did not open his eyes. He did not answer any questions or follow commands but he did open his mouth to accept food and liquid. Patient was fed by aide and given a variety of items, including ice cream, grilled cheese sandwich, mandarin oranges, cookie and thin liquid by straw. Patient consumed items willingly and was able to chew and swallow with no residue, cough or throat clearing observed. He appears to be tolerating present diet. Staff reported that appetite is poor at times and that he has been c/o his throat hurting. Patient did not verbalize anything during today's encounter and his eyes remained closed. Recommend he continue with present diet. Short term follow up for 1-2 visits will be conducted to ensure safety of diet. Results and garcía. were shared with patient's nurse who verbalized understanding. Refer to report in Post-i for further information. Thank you for this referral. KRISTEN [facility]-COMPLEX DIRECTOR
--- NOTE | 2019-05-26 13:42 | NUR ---
HELD 1300 MEDICATIONS DUE TO INCREASED DROWSINESS. WILL REEVALUATE AT NEXT MEDICATION PASS.
--- NOTE | 2019-05-26 14:01 | NUR ---
Occupational therapy orders received and chart reviewed. Patient was lethargic and unable to arouse in the afternoon to participate on OT evaluation. Will follow up with patient as appropriate. Thank you for the referral Shanta Mehta OTR/L
--- NOTE | 2019-05-26 14:13 | NUR ---
PHYSICAL THERAPY Physical therapy evaluation attempted. Patient unable to arouse to participate at this time. Will try again at a later date. Thank you. Edith Wilks,PT,DPT.
--- NOTE | 2019-05-26 14:22 | NUR ---
Clinical Updates faxed to [facility]. Attn: Patsy. Advised Patsy of plans to discharge at the end of the week, beginning of next week.
--- NOTE | 2019-05-26 14:25 | NUR ---
Met with pt's DPOAHC Suzi Pryor. Also present for part of the meeting was Josefina JOHNSON. Discussed pt's current status and his prior status. Suzi voiced concern about lethargy in pt. Discussed this further and reviewed pt's current medications. Plan is to have Dr Soliman speak with Suzi tomorrow.
--- NOTE | 2019-05-26 14:43 | NUR ---
CALL PLACED TO DR GRADY REGARDING PTS PLAN OF CARE, MEDICATION, AND ALERTNESS. TALKED TO DR MEDINA ABOUT DISCONTINUING THE ATIVAN AND DEPAKOTE UNTIL PT COMES TO AND THEN STARTING FROM FRESH WITH MEDICATION. DR MEDINA STATED TO DISCONTINUE BOTH AND HE WILL START FRESH WHEN PT IS MORE ALERT. CALL PLACED TO , ALBERTO, AND SPOKE TO HER REGARDING THE PLAN OF CARE. WILL MONITOR PTS BEHAVIORS WITH Q15 MINUTE SAFETY HECKS AND REACH OUT TO DR MEDINA IF NEEDED. SEE [facility] FOR SPECIFIC MONITORING.
--- NOTE | 2019-05-26 15:49 | NUR ---
PM GROUP PT WAS PRESENT FOR AFTERNOON GROUP THERAPY RECLINED IN A ELFEGO CHAIR SLEEPING. PT AWOKE AND ATTEMPTED TO GET UP FROM THE CHAIR REACHING FOR "SOMETHING" PT HAD A STUFFED TIGER TOY ON HIS LAP AND I HANDED IT TO HIM AND HE PROMPTLY PUT IT TO HIS EAR AND SAID OVER AND OVER, "HELLO, HELNURY..." THINKING THAT IT WAS A TELEPHONE. PT THEN DOZED BACK OFF TO SLEEP,
[2019-05-26 19:35] VITALS: BP 126/68
--- NOTE | 2019-05-26 21:01 | NUR ---
NO ADVERSE BEHAVIORS NOTED. PT ALERT AND ORIENTED TO SELF WITH CONFUSION. PT CALM, ISOLATIVE TO ROOM AND BED SINCE BEGINNING OF SHIFT. DURING 1:1 PATIENT STATED HE WAS TIRED AND WANTED TO GO BACK TO SLEEP. PT MEDICATION COMPLIANT WITHOUT DIFFICULTY, UNABLE TO EDUCATE DUE TO COGNITION. PT VOICES NO SI/HI OR HALLUCINATIONS, NO NOTED RESPONDING TO INTERNAL STIMULI.NO PARANOIA/DELUSIONS OBSERVED. NO PHYSICAL COMPLAINTS NOTED. PT CURRENTLY LAYING DOWN WITH EYES CLOSED, RESPIRATIONS EASY AND REGULAR, NO SIGNS OR SYMPTOMS OF DISTRESS NOTED. PLAN IS TO CONTINUE TO MONTIOR MOOD AND BEHAVIORS. PRESENT REALITY AND REDIRECT NEEDED. PROVIDE 1:1 FOR VENTILATION OF FEELINGS. ENCOURAGE MEDICATION COMPLIANCE AND EDUCATE. MAINTAIN Q 15 MIN CHECKS.
--- NOTE | 2019-05-27 00:50 | NUR ---
ON UNIT, UPDATED ON LABS NEEDING REVIEWED. NO NEW ORDERS RECEIVED.
--- NOTE | 2019-05-27 04:18 | NUR ---
24 HOUR CHART CHECK COMPLETED.
--- NOTE | 2019-05-27 06:55 | NUR ---
PATIENT OBSERVED ON Q 15 MIN SAFETY CHECKS TO HAVE SLEPT APPROX 5 HOURS WITH MULTIPLE AWAKENINGS NOTED OF PATIENT TALKING TO UNSEEN OTHERS. PT UNRECEPTIVE TO REORIENTATION OR REDIRECTION. NO SIGNS OR SYMPTOMS OF DISTRESS NOTED.
[2019-05-27 07:43] VITALS: BP 134/67
--- NOTE | 2019-05-27 11:56 | NUR ---
AM GROUP PT IS UNABLE TO ATTEND OR PARTICIPATE IN GROUP THERAPY AT THIS TIME DUE TO COGNITIVE IMPAIRMENT
--- NOTE | 2019-05-27 12:44 | NUR ---
SPEECH PATHOLOGY Treatment was attempted this pm during lunchtime meal. He was seated in charleen chair in activity room resting. Clinician attempted to arouse patient without success. His tray was in front of him but he was not able to awaken to safely eat. His nurse was informed and verbalized understanding. KRISTEN LUCERO [facility]-HOSPITAL FOOD SERVICE WORKER
--- NOTE | 2019-05-27 13:03 | NUR ---
SPOKE WITH RE: HER CONCERNS OF MEDICATIONS. REMAINS CONCERNED THAT PT IS STILL LETHARGIC. I ADVISED THAT PT IS CURRENTLY ONLY RECEIVING THE EXELON PATCH AND DR MEDINA HAS D/C ATIVAN AND DEPAKOTE. ASKED THAT THE EXELON PATCH BE DISCONTINUED. SPOKE WITH DR. MEDINA AND VERBAL ORDERS RECEIVED TO D/C EXELON PATCH THIS TIME. ON UNIT AND UPDATED, EXELON PATH REMOVED BY THIS NURSE.
--- NOTE | 2019-05-27 18:51 | NUR ---
PATIENT IS ALERT WITH HANDS ON CARE; LONG/SHORT TERM MEMORY DEFICITS. MOOD IS STABLE; NO VOICED STATEMENT OF HI/SI OR PAIN. NO RESPONSE TO INTERNAL STIMULI. UP IN ELFEGO CHAIR, RESTING MOST OF THE DAY. 2 PERSON ASSIST WITH ACTIVITIES OF DAILY LIVING, HERNANDEZ CATHER IN PLACE AND DRAINING WITHOUT DIFFICULTY. INCONTIENT OF BOWEL. 1 PERSON ASSIST WITH MEALS, MUCH ENCOURAGEMENT TO EAT AND DRINK AT MEALS. MEDICATION COMPLAINT. Q 15 MINUTE SAFETY CHECKS MAINTAINED. CONTINUE TO MONITOR FOR AGGRESSION WITH HANDS ON CARE. PROVIDE ONE ON ONE AND REDIRECTION NEEDED.
[2019-05-27 20:00] VITALS: BP 126/68
--- NOTE | 2019-05-27 20:45 | NUR ---
EVENING/DISCUSSION/RELAXTION PT RELAXING IN RECLINER IN ACTIVITY ROOM. PT SLEEPING ON AND OFF AT THIS TIME. PT DID NOT BECOME AGRRESSIVE OR ASSAULTIVE AND WILL CONTINUE TO ATTEND FUTURE GROUP SESSIONS AND BE ENCOURAGED TO PARTICPATE TO BEST OF PT ABILITY.
--- NOTE | 2019-05-27 23:30 | NUR ---
24 HR chart check completed.
--- NOTE | 2019-05-28 05:13 | NUR ---
PT SLEPT FROM [id number]. RESTED QUIETLY IN BED & RETURNED TO SLEEP @ 0200.
--- NOTE | 2019-05-28 08:30 | NUR ---
Treatment Plan meeting with Dr. Soliman, RN, AT, SW and Transaction Coordinator. Plan for discharge Next week. Pt. will return to [facility].
[2019-05-28 08:58] VITALS: BP 128/72
--- NOTE | 2019-05-28 13:34 | NUR ---
SPEECH PATHOLOGY Patient was seen for treatment this pm. Treatment was conducted during lunchtime meal. Patient was sitting upright in charleen chair in activity room with peers. He was awake and able to respond to questions, though his answers were not usually appropriate. His eyes remained closed throughout the meal but he opened his mouth to accept food and liquid, displaying good intake of the meal. Patient chewed slowly but was able to swallow in a timely manner with no residue, cough, throat clear or wet vocal quality. He was given a variety of food and liquid items and displayed safe tolerance for all. Recommend he continue with regular diet and thin liquid with use of strategies including upright positioning for meals, small bites/sips, slow feeding to allow him to properly chew before giving next bite and alternating food and liquid. As he is tolerating present diet, recommend discharge from speech pathology services at this time. Thank you for this referral. It has been a pleasure taking part in this patient's care. KRISTEN LUCERO [facility]-CRYPTOLOGIC TECHNICIAN OPERATOR/ANALYST
--- NOTE | 2019-05-28 15:39 | NUR ---
PM GROUP/TEAR BOTTLES PT WAS PRESENT FOR AFTERNOON GROUP THERAPY AND SAT AT THE TABLE WITH PEERS IN A ELFEGO CHAIR. PT SLEPT OFF AND ON AND WOULD WAKE AND TALK NONSENSICALLY. PT EXHBITED NO AGITATION OR AGGRESSION WHILE IN GROUP
[2019-05-28 20:01] VITALS: BP 124/68
--- NOTE | 2019-05-28 22:02 | NUR ---
24 HR chart check completed.
--- NOTE | 2019-05-28 23:00 | NUR ---
PT RESTLESS & YELLING OUT WITH INCREASED IRRITABILITY. AUDITORY HALLUCINATIONS SUSPECTED. TALKING AGAIN AT BEING AT A WORKSITE. MEDICATED WITH ATIVAN 1 MG PO @ 2245.
--- NOTE | 2019-05-29 05:40 | NUR ---
PT HAS SLEPT INTERMITTENTLY FOR ABOUT 4-5 HOURS. ATIVAN MINIMALY EFFECTIVE
--- NOTE | 2019-05-29 06:49 | NUR ---
SUDHA ALLEN [id number] Please refer to the physician's history and physical for past medical history, comorbid conditions, and allergies. Diagnosis: INTERMITTENT EXPLOSIVE DISORDER Den Score: 17,AT RISK WOUND DESCRIPTIONS: Wound Number: 1 Location of the wound: right hand Type of wound: skin tear Thickness: Partial Size: 1.1cm x 0.5cm x <0.1cm Tunneling: none Undermining: none Sinus Tract: none Presence of Exudate: sanguenious Amount: Light Color: Red Odor: None Periwound Skin Appearance: Normal Wound edges: approximated Pain (associated with wound): none at time of assessment How does patient state this happened? pt unable to state how this happened Wound Number: 2 Location of the wound: Left walter Type of wound: scab Size: 1.5cm x 1.0cm x<0.1cm Tunneling: none Undermining: none Sinus Tract: none Presence of Exudate: none Amount: None Color: Red Odor: None Periwound Skin Appearance: Normal Wound edges: approximated Pain (associated with wound): none at time of assessment How does patient state this happened? pt unable to state at this time Surface the patient is resting on: Proform SKIN PREVENTION RECOMMENDATION: 1. Pressure redistribution support surface as appropriate 2. Elevate heels 3. Remove boots/TEDS every shift and reapply 4. Head of bed 30 degrees as tolerated 5. Assess nutrition and hydration 6. Manage moisture 7. Avoid the use of containment devices while in bed 8. Use absorptive products on surfaces limit layers of linens on bed 9. Turn and reposition every 1-2 hours in bed and every 1 hour in chair as tolerated 10. Weight shifts every 15 minutes while up in chair 11. Offloading with pillows or device to keep heels elevated off bed 12. Monitor skin at least every shift 13. Inspect under medical devices twice a day WOUND TREATMENT RECOMMENDATIONS: Continue current skin tear guidelines.
[2019-05-29 08:00] VITALS: BP 113/52; BP 114/89
--- NOTE | 2019-05-29 08:45 | NUR ---
Patient resting quietly with no c/o discomfort. Respirations easy and regular. Vital signs stable. No overt distress. BIJAN PERRY
--- NOTE | 2019-05-29 10:15 | NUR ---
DR. RYDER ON FLOOR TO ASSESS PT.
--- NOTE | 2019-05-29 10:30 | NUR ---
Dr. Soliman met with Nursing staff this a.m. for treatment Plan meeting. Plan for discharge next week with return to [facility].
--- NOTE | 2019-05-29 11:59 | NUR ---
AM GROUP/EXERCISE PT WAS PRESENT FOR MORNING GROUP THERAPY BUT IS UNABLE AT THIS TIME TO PARTICIPATE DUE TO COGNITIVE IMPAIRMENT.
--- NOTE | 2019-05-29 12:02 | NUR ---
PT OFF UNIT AT THIS TIME WITH TRANSPORT AND MENTAL HEALTH WORKER TO CT.
--- NOTE | 2019-05-29 12:20 | NUR ---
PT RETURNED FROM HEAD CT WITHOUT INCIDENT.
--- NOTE | 2019-05-29 13:00 | NUR ---
Byron was evaluated by occupational therapy this date. He is lethargic and slow to respond to all questions. Byron follows 25% simple one step commands. He requires increased assist with ADL's and functional transfers secondary to decreased balance, decreased endurance, decreased strength, and decreased cognition. Contiued occupational therapy is recommended when patient is discharged back to his ECF to improve his cognition, balance, endurance, and strength. Barbara Prescott OTR/L
--- NOTE | 2019-05-29 13:42 | NUR ---
PHYSICAL THERAPY Physical therapy evaluation complete, 3N. Full evaluation/details to follow. Moderate complexity PT evaluation (03314) per chart review and evaluation. PT to progress transfers, gait, balance, and LE strength per POC. Recommend return to LTC facility at discharge. Thank you. Edith Wilks,PT,DPT
--- NOTE | 2019-05-29 14:43 | NUR ---
IV started left wrist with #22 protective cath after 1 attempts. Site prepped with Chloroprep. Sterile dressing applied. Patient tolerated procedure well. BIJAN PERRY
[2019-05-29 15:17] LABS: BASO % 0.4 % (0.0-1.0); EOS # 0.1 10*3/uL (0.0-0.4); EOS % 1.3 % (1.0-4.0); HEMATOCRIT 24.3 % (42.0-52.0); LYMPH # 0.7 10*3/uL (1.3-4.4); LYMPH % 8.3 % (27.0-41.0); MEAN CELL VOLUME 92.4 fl (80.0-94.0); MEAN CORPUSCULAR HGB 30.4 pg (27.0-31.0); MEAN CORPUSCULAR HGB CONC 32.9 g/dl (33.0-37.0); MEAN PLATELET VOLUME 10.2 fl (9.6-12.3); MONO # 1.2 10*3/uL (0.1-1.0); MONO % 14.7 % (3.0-9.0); NEUT # 5.8 10*3/uL (2.3-7.9); NEUT % 74.2 % (47.0-73.0); PLATELET COUNT AUTOMATED 250 10*3/uL (130-400); RED BLOOD COUNT 2.63 10*6/uL (4.50-5.90); RED CELL DISTRI WIDTH 12.9 % (0-14.5); WHITE BLOOD COUNT 7.8 10*3/uL (4.8-10.8)
[2019-05-29 15:30] LABS: ALBUMIN 2.6 gm/dl (3.1-4.5); CREATININE 1.48 mg/dL (0.70-1.30); POTASSIUM 4.6 mmol/L (3.5-5.1); TOTAL PROTEIN 6.2 gm/dL (6.4-8.2)
--- NOTE | 2019-05-29 15:37 | NUR ---
PM GROUP/PAINTING AND CARDS PT IS UNABLE AT THIS TIME TO PARTICIPATE IN GROUP ACTIVITIES DUE TO COGNITIVE IMPAIRMENT
--- NOTE | 2019-05-29 17:00 | NUR ---
DR. ROOT NOTIFIED LAB RESULTS FROM CBC, CMP, AND AMMONIA ARE BACK.
[2019-05-29 19:15] LABS: BILIRUBIN NEGATIVE (NEGATIVE); BLOOD 3+ (NEGATIVE); CLARITY CLEAR (CLEAR); COLOR YELLOW (YELLOW); GLUCOSE 2+ (NEGATIVE); KETONE NEGATIVE (NEGATIVE); LEUKO ESTERASE NEGATIVE (NEGATIVE); NITRITE NEGATIVE (NEGATIVE); PH 5.5 (5.0-9.0); UROBILINOGEN 0.2 E.U./dl (0.2-1.0)
[2019-05-29 19:22] LABS: BACTERIA 1+; RBC 41-50 rbc/hpf (0-2)
[2019-05-29 20:00] VITALS: BP 121/62
--- NOTE | 2019-05-29 23:30 | NUR ---
P-CONFUSION I-REDIRECTION WITH 1:1 THERAPEUTIC INTERVENTIONS AND PRESENT REALITY. EDUCATE AND ENCOURAGE MEDICATION COMPLIANCE R-PATIENT MEDICATION COMPLIANT. NOURISHMENT AND FLUIDS PROVIDED AT HS P-CONTINUE TO ENCOURAGE MEDICATION COMPLIANCE, PRESENT REALITY, ENCOURAGE GROUP THERAPY WHILE AWAKE
--- NOTE | 2019-05-30 07:30 | NUR ---
OT NOTE Pt was seen this A.M. 1:1 for 18 minute OT session with nursing staff present for observation only. Upon arrival pt was supine in bed. Pt identified by name and on wristband due to pt only speaking of Ryan Dickey, pt was unable to be redirected. Pt transferred supine to sit EOB with modA for assist with UB. Sit to stand completed from bed level with modA X 2 SAP PI ARCHITECT followed by functional mobility to the bathroom with modA X 2 and constant verbal prompts for wider base of support and bigger steps, pt had poor carry over. Pt transferred on/off standard commode with modA X 2. Pt was left sitting upright in the charleen chair in the dining room with body alarm activated for safety and under U staff supervision. Continue with POC as able. GETACHEW Silver/Chito
[2019-05-30 08:00] VITALS: BP 114/70
--- NOTE | 2019-05-30 08:30 | NUR ---
Treatment Plan meeting with Dr. Soliman, RN, AT, SW and Social Psychologist. Plan for discharge Next week. Pt. will return to [facility].
--- NOTE | 2019-05-30 08:38 | NUR ---
Patient resting quietly with no c/o discomfort. Respirations easy and regular. Vital signs stable. No overt distress. BIJAN PERRY
--- NOTE | 2019-05-30 11:06 | NUR ---
Received voicemail from Hanane from [facility]. Returned call and left message regarding continued review stay. Awaiting return call.
--- NOTE | 2019-05-30 11:29 | NUR ---
Spoke to Hanane at [facility] regarding continued review stay. IP 4 additional days approved with LIBBY and NRD 06/02 with Nicci. Contact phone number [phone].
--- NOTE | 2019-05-30 11:42 | NUR ---
Spoke with Patsy at [facility]. Advised of plans to discharge next week. Patsy states that "Ansley the Nurse Practitioner had spoken with the pbx operator at their facility and felt that patient was not appropriate for their facility". Advised Patsy that Dr. Soliman had not mentioned that at all during patient admission to [facility] and plan remained for patient to return to [facility]. Patsy states that Facility has not spoken to patient and Patient wants patient to return to [facility].
--- NOTE | 2019-05-30 11:45 | NUR ---
AM GROUP/LEISURE INTERESTS PT WAS PRESENT FOR MORNING GROUP THERAPY BUT IS UNABLE TO PARTICIPATE DUE TO COGNITIVE IMPAIRMENT. PT WAS SAT UPRIGHT AT THE TABLE IN A ELFEGO CHAIR AND SLEPT MOST TO THE TIME. PT WOULD WAKE AND PARROT A WORD OR STATEMENT MADE AND GO BACK TO SLEEP. PT EXHIBITED NO AGITATION OR AGGRESSION WHILE IN GROUP
--- NOTE | 2019-05-30 11:54 | NUR ---
Clinical Updates faxed to [facility] Attn: [facility] [phone].
--- NOTE | 2019-05-30 14:18 | NUR ---
OT CO-SIGN I APPROVE OF THE NOTES WRITTEN ABOVE. THANK YOU. CONNIE MEDRANO, OTR/L
--- NOTE | 2019-05-30 15:51 | NUR ---
Met with pt's DPOA Suzi Pryor. Pt was also present. Provided update and confirmed discharge plan to [facility].
--- NOTE | 2019-05-30 18:47 | NUR ---
PT CONFUSED. REORIENTED, PROVIDED 1:1. PT UNABLE TO BE REORIENTED. PT VERY CONFUSED, S/T DEFICITS APPARENT. PT CONTINUES TO BE MORE ALERT PT IS CLEARING MEDICATIONS FROM SYSTEM. PT RESPONDS TO VERBAL STIMULI, OPENS EYES. ATTEMPTED MERRY-WALKER, BUT PT DID JUST SIT IN IT WITHOUT PROPELLING SELF. WILL CONTINUE TO ATTEMPT TO REORIENT PT. WILL CONTINUE TO PROVIDE REASSURANCE APPROPRIATE. WILL CONTINUE TO PROVIDE ACTIVITY TO PROMOTE ALERTNESS T/O DAY. Q 15 MIN MONITORING PER POLICY.
[2019-05-30 19:29] VITALS: BP 112/60
--- NOTE | 2019-05-30 23:00 | NUR ---
24 HR chart check completed.
--- NOTE | 2019-05-31 00:01 | NUR ---
P-CONFUSION I-REDIRECTION WITH 1:1 THERAPEUTIC INTERVENTIONS AND PRESENT REALITY. EDUCATE AND ENCOURAGE MEDICATION COMPLIANCE R-PATIENT MEDICATION COMPLIANT. NOURISHMENT AND FLUIDS PROVIDED AT . HERNANDEZ INTACT AND PATENT. P-CONTINUE TO ENCOURAGE MEDICATION COMPLIANCE, PRESENT REALITY, ENCOURAGE GROUP THERAPY WHILE AWAKE
--- NOTE | 2019-05-31 06:50 | NUR ---
PATIENT SLEPT 8 HOURS OF UNINTERRUPTED SLEEP THROUGHOUT SHIFT. Q 15 MINUTE CHECKS MAINTAINED
[2019-05-31 07:20] LABS: ALBUMIN 2.4 gm/dl (3.1-4.5); CREATININE 1.56 mg/dL (0.70-1.30); POTASSIUM 3.9 mmol/L (3.5-5.1); TOTAL PROTEIN 5.8 gm/dL (6.4-8.2)
[2019-05-31 08:30] VITALS: BP 110/60
--- NOTE | 2019-05-31 11:50 | NUR ---
AM/EXERCISES/REMINISCE/ART PT ATTENDED BUT UNABLE TO PARTICIPATE DUE TO LEVELS OF CONFUSION. PT RESTING MOST OF GROUP. PT DID NOT BECOME AGGRESSIVE OR ASSAULTIVE AT THIS TIME. PT WILL CONTINUE TO ATTEND FUTURE RGOUP SESSIONS.
--- NOTE | 2019-05-31 14:39 | NUR ---
PT REFUSED AM MEDICATIONS. ESR, BUN AND CREATININE ELEVATED. PT REAPPROACHED MULTIPLE TIMES. DR. BRAXTON NOTIFIED OF LAB RESULTS. NEW ORDER FOR IV FLUIDS X 1 LITER. INFUSING TO #22 IN LEFT WRIST WITHOUT DIFFICULTY. PT BECOMING MORE ALERT, AWAKE IN GROUP THERAPY AT THIS TIME. PT TOOK PO MEDICATIONS AND THEN SPIT OUT. WILL CONTINUE TO ENCOURAGE MEDICATION COMPLIANCE. WILL CONTINUE TO MONITOR LABS PER ORDER. WILL CONTINUE TO ENCOURAGE PO INTAKE.
--- NOTE | 2019-05-31 15:58 | NUR ---
PM GROUP/GAMES/MUSIC PT ATTENDED BUT UNABLE TO PARTICIPATE DUE TO LEVELS OF CONFUSION. PT LOOKED THROUGH MAGAZINES FOR A WHILE AND THEN BEGAN TO QUESTION WHERE HE IS AND WHY. PT NOT EASILY REDIRECTED, BUT DID NOT BECOME AGGRESSIVE OR ASSAULTIVE. PT WILL CONTINUE TO ATTEND FUTURE GROUP SESSIONS.
[2019-05-31 19:51] VITALS: BP 107/74
--- NOTE | 2019-05-31 23:43 | NUR ---
P-CONFUSION, YELLING OUT I-REDIRECTION WITH 1:1 THERAPEUTIC INTERVENTIONS AND PRESENT REALITY. EDUCATE AND ENCOURAGE MEDICATION COMPLIANCE R-PATIENT MEDICATION COMPLIANT. NSS INFUSING AT 100ML/HR INTO LEFT WRIST 22 GAUGE WITHOUT DIFFICULTY. NSS ORDERED X 1 BAG COMPLETED AT 2330. HERNANDEZ INTACT AND PATENT. PATIENT YELLING OUT AND SINGING ON OCCASION AT HS. PATIENT RESTING IN BED AT THIS TIME P-CONTINUE TO ENCOURAGE MEDICATION COMPLIANCE, PRESENT REALITY, ENCOURAGE GROUP THERAPY WHILE AWAKE
--- NOTE | 2019-06-01 00:36 | NUR ---
24 HR chart check completed.
--- NOTE | 2019-06-01 06:25 | NUR ---
PATIENT SLEPT 4 HOURS OF INTERRUPTED SLEEP THROUGHOUT SHIFT. Q 15 MINUTE CHECKS MAINTAINED
[2019-06-01 07:15] LABS: BASO % 0.4 % (0.0-1.0); EOS # 0.2 10*3/uL (0.0-0.4); EOS % 1.9 % (1.0-4.0); HEMATOCRIT 21.1 % (42.0-52.0); HEMOGLOBIN 7.2 g/dl (14.0-18.0); LYMPH # 1.2 10*3/uL (1.3-4.4); LYMPH % 14.5 % (27.0-41.0); MEAN CELL VOLUME 88.7 fl (80.0-94.0); MEAN CORPUSCULAR HGB 30.3 pg (27.0-31.0); MEAN CORPUSCULAR HGB CONC 34.1 g/dl (33.0-37.0); NEUT # 5.6 10*3/uL (2.3-7.9); NEUT % 69.7 % (47.0-73.0); PLATELET COUNT AUTOMATED 193 10*3/uL (130-400); RED BLOOD COUNT 2.38 10*6/uL (4.50-5.90); RED CELL DISTRI WIDTH 12.8 % (0-14.5)
[2019-06-01 07:36] LABS: BUN 47 mg/dl (7-24); CHLORIDE 108 mmol/L (98-107); CREATININE 1.26 mg/dL (0.70-1.30); SODIUM 139 mmol/L (136-145)
[2019-06-01 08:08] VITALS: BP 117/65
--- NOTE | 2019-06-01 09:54 | NUR ---
DR. BRAXTON ON UNIT TO ASSESS PATIENT.
--- NOTE | 2019-06-01 11:40 | NUR ---
DR. BENNETT ON UNIT TO ASSESS PATIENT.
--- NOTE | 2019-06-01 12:12 | NUR ---
AM/BRAIN GAMES/MUSIC PT CHOSE NOT TO ATTEND BUT TO REMAIN IN ROOM AT THIS TIME. DUE TO LEVELS OF CONFUSION/COGNITION PT HAS TROUBLE PARTICIPATING BUT WILL BE ENCOURAGED TO ATTEND FUTURE RGOUP SESSIONS AND PARTICIPATE TO BEST OF PT ABILITY.
--- NOTE | 2019-06-01 12:59 | NUR ---
DR. GORDON NOTIFIED OF LAB RESULTS.
--- NOTE | 2019-06-01 15:51 | NUR ---
P: NON COMPLIANCE WITH MEDICATIONS; SWUNG MEDICAION OUT OF NURSE HAND, YELLING AT STAFF TO GET OUT. 2 ASSIST TO TRANSFER AND CARE; RESISTING WITH TRANSFER, PULLING BACK WHEN ASSISTING TO STANDING POSITION. INCREASED ESCULATION IN DINING ROOM WITH OTHER STAFF. ARGUEMENTATIVE WITH STAFF. 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 I: ONE ON ONE, REDIRECTION; ASSISTED TO QUIET ROOM WITH LESS STIMULI; PROVIDED ACTIVITY. R: EFFECTIVE; PATIENT IS ALERT TO SELF WITH CONFUSION. RECALLED NAME SUDHA ACHARYA. NOT ABLE TO RECALL TIME, PLACE OR SITUATION; RESPONDING TO INTERNAL STIMULI. NO VOICED STATEMENT OF HI/SI OR PAIN. 2-3 PERSON ASSIST WITH ACTIVITIES OF DAILY LIVING, HERNANDEZ IN PLACE AND DRAINING WITHOUT DIFFICULTY. CONTINENT OF BOWEL. SET UP FOR MEALS, POOR PO INTAKE WITH MUCH ENCOURAGEMENT AND ASSISTANCE WITH MEALS. P: CONTINUE TO MONITOR MOOD AND AGGRESSION WITH HANDS ON CARE. PROVIDE ONE ON ONE, REDIRECTION/ORIENTATION AND ACTIVITY NEEDED.
--- NOTE | 2019-06-01 16:16 | NUR ---
Shift chart check completed.
[2019-06-01 19:31] VITALS: BP 125/69
--- NOTE | 2019-06-01 22:38 | NUR ---
PLEASENTLY CONFUSED. APPEARS ENTERTAINED BY OUTBURSTS OF FEMALE PEERS IN ROOM. UNALBE TO HOLD A CONVERSATION DUE TO CONFUSION AND FLIGHT OF IDEAS. APPEARS TO BE HOLDING A FULL CONVERSATION WITH UNSEEN PERSONS. REACTS AT TIMES TO FEMALE PEERS OUTBURSTS BY ANSWERING WHAT HE THINKS IS CORRECT. HERNANDEZ PATENT WITH TARIQ URINE NOTED. WILL CONTINUE TO MONITOR FOR CHANGES IN BEHAVIOR OR MOOD
--- NOTE | 2019-06-01 23:23 | NUR ---
CURRENTLY HOLDING A DELUSION, FLIGHT OF IDEAS CONVERSATION WITH MOTORIZED SQUAD COMMANDING OFFICER. MANTLE PAINTING ON WALL REALLY UPSETTING CLIENT. 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 ANY ATTEMPT AT REDIRECTION MET WITH AGGITATION. SUBJECTS CHANGE FROM TRUCKS, TO CONSTRUCTION AND THINGS HE OWNS. WILL CONTINUE TO MONITOR
--- NOTE | 2019-06-02 04:18 | NUR ---
HAS NOT SLEPT MORE THAN AN HOUR IN 10 MINUTE INCREAMENTS. HAS BEEN TALKING ALL NIGHT ABOUT CONSTRUCTION, WHAT HE OWNS, HOW THINGS ARE MADE. 24 HR chart check completed.
--- NOTE | 2019-06-02 05:59 | NUR ---
CURRENTLY SLEEPING IN QUIET ROOM ACROSS FROM NURSES STATION
[2019-06-02 07:08] LABS: BASO % 0.2 % (0.0-1.0); EOS # 0.2 10*3/uL (0.0-0.4); EOS % 1.8 % (1.0-4.0); HEMATOCRIT 22.9 % (42.0-52.0); HEMOGLOBIN 7.9 g/dl (14.0-18.0); LYMPH # 1.1 10*3/uL (1.3-4.4); LYMPH % 12.8 % (27.0-41.0); MEAN CELL VOLUME 88.8 fl (80.0-94.0); MEAN CORPUSCULAR HGB 30.6 pg (27.0-31.0); MEAN CORPUSCULAR HGB CONC 34.5 g/dl (33.0-37.0); MEAN PLATELET VOLUME 10.1 fl (9.6-12.3); MONO # 1.2 10*3/uL (0.1-1.0); MONO % 14.1 % (3.0-9.0); NEUT % 70.6 % (47.0-73.0); PLATELET COUNT AUTOMATED 223 10*3/uL (130-400); RED BLOOD COUNT 2.58 10*6/uL (4.50-5.90); RED CELL DISTRI WIDTH 12.7 % (0-14.5); WHITE BLOOD COUNT 8.5 10*3/uL (4.8-10.8)
--- NOTE | 2019-06-02 07:16 | NUR ---
PHYSICAL THERAPY PT SITTING IN QUIET ROOM UPON ARRIVAL THIS A.M WITH BODY ALARM ON IN ELFEGO-CHAIR. PT IDENTIFIED BY NAME AND ON NAME BAND. JAIL GUARD PRESENT FOR OBSERVATION. PT AGREED TO ALL PT TREATMENT THIS VISIT. PT TAKEN TO HALLWAY VIA ELFEGO-CHAIR. PT PERFORMED STS TRANSFERS X2 WITH MAXa X2 WITH MAX MOTIVATION TO PERFORM TASKS. PT RETRO WITH WEIGHT AND UNABLE TO FOLLOW SIMPLE TASKS. PT PUSHING WITH FEEL TO SIT AND PUSH BUTT OUT TO SIT BACK IN ELFEGO-CHAIR ONCE TO STANDING. PT BACK IN ELFEGO-CHAIR WITH BODY ALARM ON WITH QUIET ROOM AT END OF SESSION. PT SEEN 1:1 FOR 14MINS THIS A.M. JOHN BOO PTA
--- NOTE | 2019-06-02 07:22 | NUR ---
OT NOTE Pt was seen this A.M. 1:1 for 12 minute OT session with ROW BOSS HOEING and nursing staff present for observation only. Upon arrival pt was sitting reclined in the charleen chair in the quiet room. Pt identified by name and on wristband due to pt being unable to follow simple commands or answer in relation to current topic. Pt was taken out into the hallway where he completed multiple sit to stand transfers from chair level with maxA X 2 and use of hand rail for UE support. Pt required constant verbal prompts for encouragement, following commands, and correcting posture. Pt presented in static standing with retrograde posture that required maxA to correct. Challenged pt's static standing tolerance needed for increased I in self care tasks and functional transfers. Pt was able to tolerate aprox 15 seconds at a time before sitting due to fatigue and limited endurance. Pt was left sitting reclined in the charleen chair in the quiet room with body alarm on for safety, lap tray in place, and under [facility] staff supervision. Continue with rec D/C plan to ECF with continued OT. GETACHEW Silver/Chito
[2019-06-02 07:35] LABS: BUN 40 mg/dl (7-24); CHLORIDE 108 mmol/L (98-107); SODIUM 140 mmol/L (136-145)
[2019-06-02 08:08] VITALS: BP 127/60
--- NOTE | 2019-06-02 08:41 | NUR ---
DR. MORGAN NOTIFIED OF HBG AND HCT LABS, ALONG WITH UA RESULTS.
--- NOTE | 2019-06-02 11:37 | NUR ---
AM GROUP PT WAS PRESENT FOR MORNING GROUP THERAPY, ALERT AND SITTING IN A ELFEGO CHAIR. PT DID EXPRESS VISUAL HALLUCINATIONS BUT WAS CALM AND ABLE TO BE REDIRECTED.
[2019-06-02] MEDS ORDERED: FINASTERIDE5 M1 PO (14:06)
[2019-06-02] MEDS ORDERED: VITAMIN D5000 UNI1 PO (14:06)
--- NOTE | 2019-06-02 14:09 | NUR ---
DR. MORGAN NOTIFIED OF PATIENT BEING DISCHARGED TOMMORROW, TO INFORM DR. MCHUGH OF DISCHARGE.
--- NOTE | 2019-06-02 14:35 | NUR ---
PATIENT IS ALERT TO SELF; FIRST NAME ONLY WITH CONFUSION. LONG/SHORT TERM MEMORY DEFICITS NOTED. MOOD IS HOPELESS/HELPLESS. NO RESPONSE TO INTERNAL STIMULI NOTED. NO VOICED STATEMENT OF HI/SI OR PAIN. MEDICATION COMPLAINT. Q 15 MINUTES SAFETY CHECKS MAINTAINED. PATIENT RECIEVED THERAPY SERVICES THIS MORNING. PATIENT ATTENDED GROUP SESSION. PATIENT NOT ABLE TO ANSWER QUESTIONS APPROPRIATELY. 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 PATIENT MORE ALERT, BRIGHT AFFECT. 1 PERSON ASSIST WITH ACTIVITIES OF DAILY LIVING, HERNANDEZ CATHETER IN PLACE AND DRAINING WITHOUT DIFFICULTY. CONTINENT OF BOWEL. SET UP FOR MEALS, PATIENT ABLE TO FEED SELF THIS MORING, INTAKES ARE INPROVING. CONTINUE TO MONITOR FOR AGGRESSION AND BEING COMBATIVE WITH HANDS ON CARE; PROVIDE ONE ON ONE AND REDIRECTION NEEDED.
--- NOTE | 2019-06-02 15:43 | NUR ---
PM GROUP PT DID NOT ATTEND AFTERNOON GROUP THERAPY. PT WAS IN A MEETING WITH NURSING AND A FAMILY MEMBER.
--- NOTE | 2019-06-02 15:47 | NUR ---
Left Message for Patsy at [facility] to notify of discharge tommorow. Clinical Updates faxed to facility.
[2019-06-02 19:30] VITALS: BP 118/62
--- NOTE | 2019-06-02 20:34 | NUR ---
EVENING/LEISURE SKILLS PT ATTENDED AND DID LOOK THROUGH SOME MAGAZINES. PT RELAXING AND OBSERVING GROUP. PT DID NOT BECOME ASSAULTIVE OR AGGRESSIVE AT THIS TIME AND WILL CONTINUE TO ATTEND AND BE ENCOURAGED TO PARTICIPATE TO BEST OF PT ABILITY IN FUTURE GROUP SESSIONS.
--- NOTE | 2019-06-02 22:01 | NUR ---
UP IN CHAIR. ISOATIVE WITH PEERS AND STAFF. FEEDING SELF AT PM SNACK WITHOUT ISSUES. MEDICATION TAKEN WITH MUCH ENCOURAGEMENT. CLIENT NOT INTERESTED IN TALKING WITH STAFF TONIGHT. IMPROVEMENT FROM LAST NIGHT NOTED
--- NOTE | 2019-06-03 02:33 | NUR ---
24 HR chart check completed.
--- NOTE | 2019-06-03 05:49 | NUR ---
SLEPT WELL IN BED PAST 2200PM. ALLOWED TO SLEEP TILL HE IS READY TO GET UP.
--- NOTE | 2019-06-03 07:00 | NUR ---
OT NOTE Attempted to see pt this A.M. for OT session and upon arrival pt was asleep in his room. Unable to arouse to verbal stimuli. Will check back at a later time/date and continue with POC as able. GETACHEW Silver/Chito
[2019-06-03 07:42] VITALS: BP 123/64
--- NOTE | 2019-06-03 08:55 | NUR ---
DR. MORGAN NOTIFIED OF PATIENT BEING DISCHARGED, TO INFORM DR. MCHUGH OF DISCHARGE.
--- NOTE | 2019-06-03 11:00 | NUR ---
Late entry: On 06/02/19, met with pt and ALFRED Peng for pt. Pt was pleasantly confused as he sat in the charleen-chair. Discussed pt's status with Suzi. Suzi began voicing concerns to this typewriters functional tester about pt care. Informed Suzi that she should be speaking to the director of the unit and offered to contact the director for her. Suzi was agreeable to this. This typewriters functional tester texted Julio Barfield RN, Director of [facility], and requested that he meet with Suzi. Arrangements were made for Suzi to remain after visiting hour to meet with Julio.
--- NOTE | 2019-06-03 11:03 | NUR ---
Patient is discharging today to [facility]. Follow-up will be with Dr Soliman, visiting psychiatrist. While at [facility], pt improved. Pt continues to be pleasantly confused. He is not having any difficult or inappropriate behaviors at dischare.
--- NOTE | 2019-06-03 11:35 | NUR ---
AM GROUP PT DID NOT ATTEND MORNING GROUP THERAPY. PT WAS IN THE QUIET ROOM RESTING WITH A HEADACHE
--- NOTE | 2019-06-03 12:33 | NUR ---
DRESSING CHANGE TO RIGHT HAND ATTEMPTED TWICE AND REFUSED PICTURES. PATIENT STATED "GET THE HELL OUT OF HERE AND YOU PAY THE BILL" PATIENT PROVIDED WITH SPACE AT THIS TIME.
--- NOTE | 2019-06-03 15:12 | NUR ---
PHYSICAL THERAPY CO-SIGN I approve of the Physical Therapy notes written above. BRANDT SAN PT, DPT
--- NOTE | 2019-06-03 16:07 | NUR ---
Call placed to Sisi Gallegos at [facility]. Notified that Ambulance transportation is Running Late.
--- NOTE | 2019-06-03 19:25 | NUR ---
PATIENT IS ALERT TO SELF WITH CONFUSION. LONG/SHORT TERM MEMORY DEFICITS. MOOD IS IRRITABLE, HOPELESS/HELPLESS. TALKS TO UNSEEN OTHERS. RESPONSE TO INTERNAL STIMULI, NO AGGRESSION. NO VOICED STATEMENT OF HI/SI. MEDICATED WITH TYLENOL 650MG THIS MORNING FOR HEADACH AND EFFECTIVE. Q 15 MINUTE SAFETY CHECKS MAINTAINED. 2 PERSON ASSIST WITH ACTIVITIES OF DAILY LIVING, HERNANDEZ CATHETER IN PLACE AND DRAINING WITHOUT DIFFICULTY. CONTINENT OF BOWEL. SET UP FOR MEALS, ASSISTANCE WHEN PATIENT NOT FEEDING SELF. CONTINUE TO MONITOR FOR AGGRESSION; PROVIDE ONE ON ONE AND REDIRECTION NEEDED.
--- NOTE | 2019-06-03 19:30 | NUR ---
AMBULANCE SERVICE PRESENT. PATIENT ASSISTED TO [facility]; ALL BELONGING AND DISCHARGE INSTRUCTIONS SENT WITH PATIENT.
--- NOTE | 2019-06-04 07:43 | NUR ---
Detailed discharge clinical left on Nicci at [facility]'s confidential voicemail. Auth # [id number]. All IP days approved.
--- NOTE | 2019-06-04 08:31 | NUR ---
OCCUPATIONAL THERAPY CO-SIGN I approve of the Occupational Therapy notes written above. KAYLIN DOS SANTOS OTR/Chito
== END 2019-06-03 19:30 | DRG 56 ==
LOC: 3N 12:59
PROVIDERS: Family Medicine; Internal Medicine; Nurse Practitioner Women's Health; ADMIT Psychiatry & Neurology Psychiatry
DX: G31.83 Neurocognitive disorder with Lewy bodies (principal); N17.0 Acute kidney failure with tubular necrosis; F02.81 Dementia in other diseases classified elsewhere, unspecified severity, with behavioral disturbance; F01.51 Vascular dementia, unspecified severity, with behavioral disturbance; N39.0 Urinary tract infection, site not specified; G30.9 Alzheimer's disease, unspecified; F63.81 Intermittent explosive disorder; F41.9 Anxiety disorder, unspecified; I10 Essential (primary) hypertension; N40.0 Benign prostatic hyperplasia without lower urinary tract symptoms; E78.5 Hyperlipidemia, unspecified; E11.319 Type 2 diabetes mellitus with unspecified diabetic retinopathy without macular edema; I25.10 Atherosclerotic heart disease of native coronary artery without angina pectoris; D64.9 Anemia, unspecified; E55.9 Vitamin D deficiency, unspecified; Z88.5 Allergy status to narcotic agent; Z87.440 Personal history of urinary (tract) infections; Z79.82 Long term (current) use of aspirin; Z79.899 Other long term (current) drug therapy; Z79.4 Long term (current) use of insulin; Z79.02 Long term (current) use of antithrombotics/antiplatelets